=== PATIENT | female | born 1960 | race Two or more races ===

== ENCOUNTER 2024-11-14 09:59 | Emergency (ER) | payer MEDICARE, MEDICAID, SELFPAY ==
[2024-11-14 10:20] VITALS: BP 144/85; PULSE 70; RESP 16; TEMP 37.3; O2SAT 98; BMI 33.0
--- NOTE | 2024-11-14 10:21 | EKG_ITS ---
[facility] Test Date: 2024-11-14 Pat Name: DUTCH MILLS Department: Room: - Gender: Female Concierge: : 1960 Requested By: Sampson Salinas Order Number: [id number] Reading MD: Sampson Salinas Measurements Intervals [place] Rate: 63 P: 50 [place]: 147 QRS: 3 QRSD: 88 T: 47 QT: 394 QTc: 405 Interpretive Statements SINUS RHYTHM No previous ECG available for comparison /store/[email or web address]/[id number]
--- NOTE | 2024-11-14 10:31 | PD.EDADULT ---
ED General RME/HPI General Chief complaint: General Adult/Misc Complain Stated complaint: SENT BY CLINIC FOR DEHYDRATION Time Seen by Provider: 11/14/24 10:22 Source: patient Arrival date/time: 11/14/24 09:59 64-year-old female with no known medical history presents to the emergency room with a chief complaint of fatigue, weakness x 3 days. Patient states she was sent over by her clinic for dehydration. Mode of arrival: ambulatory Limitations: no limitations Related Data Allergies Allergy/AdvReac Type Severity Reaction Status Date / Time codeine Allergy Verified 07/16/10 09:15 Review of Systems Review of Systems Systems Reviewed: All systems reviewed, normal except as documented Constitutional Constitutional: Reports system reviewed and no additional complaints, except as documented, Reports body ache(s), Denies fatigue, Denies fever(s), Reports headache(s) and Reports weakness Eyes Eyes: Reports system reviewed and no additional complaints, except as documented, Denies blurry vision and Denies change in vision ENT Ears, Nose, Mouth, and Throat: Reports system reviewed and no additional complaints, except as documented, Denies otalgia, Reports headache(s), Denies nasal congestion, Denies throat swelling and Denies vertigo Cardiovascular Cardiovascular: Reports system reviewed and no additional complaints, except as documented, Denies chest pain, Denies dyspnea and Denies dyspnea on exertion Respiratory Respiratory: Reports system reviewed and no additional complaints, except as documented, Denies chest congestion, Denies cough, Denies dyspnea, Denies dyspnea on exertion and Denies wheezing Gastrointestinal Gastrointestinal: Reports system reviewed and no additional complaints, except as documented, Denies abdominal pain, Denies cramping, Denies nausea and Denies vomiting Genitourinary Genitourinary: Reports system reviewed and no additional complaints, except as documented Musculoskeletal Musculoskeletal: Reports system reviewed and no additional complaints, except as documented and Denies back pain Integumentary/Breasts Skin/Breast: Reports system reviewed and no additional complaints, except as documented and Denies wounds Neurologic Neurologic: Reports system reviewed and no additional complaints, except as documented, Denies confusion, Reports headache(s), Denies lack of coordination, Denies vertigo and Reports weakness Psychiatric Psychiatric: Reports system reviewed and no additional complaints, except as documented, Denies anxiety, Denies confusion, Denies depression, Denies paranoia, Denies suicidal ideation and Denies tactile hallucinations Endocrine Endocrine: Reports system reviewed and no additional complaints, except as documented and Denies fatigue Hematologic/Lymphatic Hematologic/Lymphatic: Reports system reviewed and no additional complaints, except as documented and Denies lymphadenopathy Allergic/Immunologic Allergic/Immunologic: Reports system reviewed and no additional complaints, except as documented, Denies throat swelling, Denies urticaria and Denies wheezing Past Medical History Social History SMOKING STATUS: Never smoker ED Exam General Limitations: Present no limitations General appearance: Present alert and in no apparent distress Head Head exam: Present atraumatic Eye Eye exam: Present normal appearance, PERRL and EOMI ENT ENT exam: Present normal exam, normal oropharynx and mucous membranes moist Neck Neck exam: Present normal inspection, full ROM and trachea midline Chest Chest inspection: Present normal inspection and symmetric chest wall rise Respiratory Respiratory exam: Present normal lung sounds bilaterally Cardiovascular Cardiovascular exam: Present regular rate, normal rhythm and normal heart sounds; Absent bradycardia, tachycardia or irregular rhythm Abdominal Exam Abdominal exam: Present soft and normal bowel sounds; Absent distention, tenderness, guarding or rebound Extremities Exam Extremities exam: Present normal inspection and full ROM Back Exam Back exam: Present normal inspection and full ROM Neurological Exam Neurological exam: Present alert, oriented X3 and CN II-XII intact Psychiatric Psychiatric exam: Present normal affect and normal mood Skin Skin exam: Present warm, dry, intact and normal color Course Quality Measures none Orders Category Date Time Status EKG (ED ONLY) *Do not use* NOW Care 11/14/24 10:21 Completed EKG (ED Only) Stat Exams 11/14/24 10:21 Draft B-Type Natriuretic Peptide Stat Lab 11/14/24 10:45 Completed CBC Stat Lab 11/14/24 10:45 Completed Comprehensive Metabolic Panel Stat Lab 11/14/24 10:45 Completed Magnesium Stat Lab 11/14/24 10:45 Completed Troponin I Stat Lab 11/14/24 10:45 Completed Urinalysis Stat Lab 11/14/24 10:47 Completed Vital Signs Vital signs: Vital Signs Temperature 99.1 F 11/14/24 10:20 Pulse Rate 70 11/14/24 10:20 Respiratory Rate 16 11/14/24 10:20 Blood Pressure 144/85 H 11/14/24 10:20 Pulse Oximetry (%) 98 11/14/24 10:20 Oxygen Delivery Method Room Air 11/14/24 10:20 O2 saturation 98% within normal limits Procedures -ED EKG Interpretation #1: Date of EK11/14/24 Rate: 63 Interpretation: Reviewed by me EKG Impression: Normal sinus rhythm Discharge Plan Plan Patient Disposition: HOME (Self Care) Discharge Disposition comment: Stable Prescriptions/Referrals Referrals: Gatito Atwood MD [Primary Care Provider] - In 1 week Problem List Clinical Impression: Weakness Patient/Caregiver Discharge Instructions Education Materials: ED Weakness (Uncertain Cause) Additional Instructions: Por favor, consulte con singh m?dico de cabecera en las pr?ximas 24 a 48 horas. Singh examen card?aco se encontr? dentro de los l?mites normales. Heidy niveles de troponina y singh electrocardiograma se encontraron dentro de los l?mites normales. Singh an?lisis de michael fue negativo para cualquier signo pearl de deshidrataci?n. Por favor, contin?e con la hidrataci?n oral y kojo l?quidos jonah Pedialyte o Gatorade. Si observa cualquier signo de empeoramiento de los signos o s?ntomas, acuda a urgencias de inmediato. Print Language: Ukrainian Stand Alone Forms: Taylor Award Info., Patient Portal Info Letter PA/RIVETER HELPER Supervising Physician PA/RIVETER HELPER Supervising Physician: Dr. Lee [facility] Narrative [facility] hospital course: 64-year-old female with no known medical history presents to the emergency room with a chief complaint of fatigue, weakness x 3 days. Patient states she was sent over by her clinic for dehydration. Patient is hemodynamically stable and in no apparent distress. Physical examination shows a soft nontender abdomen. Patient states she is having a lot of fatigue and a lot of weakness for the last 3 days. Patient states she was to get blood drawn at her clinic but they were unable to draw her due to her veins. They recommended her to come to the emergency room to rule out any dehydration. CBC CMP were completed and were negative for any dehydration. EKG and troponin were negative for any acute findings. Patient was discharged and educated to follow-up with primary care provider in the next 24 to 48 hours and return to the emergency room for any evidence of worsening signs or symptoms Clinical Information Provided by patient Medical Records Reviewed [facility] and [facility] Meds/Rx Considered, not Ordered None Labs/Rad/Tests considered, not Ordered None Chronic Illness/Social Conditions which may negatively complicate care or outcome(s)-explain: None or not applicable EKG EKG not done Lab Interpretation Labs: none Imaging Imaging interpretation: none Medication Administration(s) none Diagnosis Differential diagnosis: Weakness/dehydration/electrolyte imbalance/hypokalemia/STEMI Differential dx and/or dx ruled out: Dehydration/hypokalemia/STEMI Most likely dx, and/or detailed dx discussion: Weakness Dispositon Disposition: Discharge Home
[2024-11-14 10:58] LABS: Basophils % (Auto) 0 % (0-2.5); Eosinophils # (Auto) 0.1 Thou/mm3 (0.0-0.5); Eosinophils % (Auto) 1 % (0-10); Hematocrit 41.4 % (36.0-46.0); Hemoglobin 14.3 g/dL (12.0-16.0); Immature Granulocytes % (Auto) 0 % (0-0); Immature Granulocytes Auto 0.01 Thou/mm3 (0.00-0.00); Lymphocytes # (Auto) 1.7 Thou/mm3 (1.0-4.8); Lymphocytes % (Auto) 26 % (10-50); Mean Corpuscular HGB Conc 34.5 g/dl (31.0-37.0); Mean Corpuscular Hemoglobin 30.8 pg (25.0-35.0); Mean Corpuscular Volume 89 fL (80-100); Monocytes # (Auto) 0.4 Thou/mm3 (0.0-0.8); Monocytes % (Auto) 6 % (0-12); Neutrophils # (Auto) 4.2 Thou/mm3 (1.8-7.7); Neutrophils % (Auto) 66 % (37-80); Nucleated Red Blood Cell % 0 /100 WBC (0); Platelet Count 202 Thou/mm3 (140-440); RDW Standard Deviation 43.4 fL (36.4-46.3); Red Blood Count 4.64 Miln/mm3 (4.00-5.20); White Blood Count 6.4 Thou/mm3 (3.6-11.0)
[2024-11-14 10:59] LABS: Collection Type, Urine Clean Catch
[2024-11-14 11:14] LABS: B-Type Natriuretic Peptide < 20 pg/mL (0-100)
[2024-11-14 11:17] LABS: Alanine Aminotransferase 17 U/L (10-49); Albumin, Serum 4.4 gm/dL (3.4-4.8); Albumin/Globulin Ratio 1.7 (1.2-2.2); Alkaline Phosphatase 106 U/L (46-116); Anion Gap 9 (7-16); Aspartate Amino Transferase 20 U/L (0-34); BUN/Creatinine Ratio 15 Ratio (12-20); Bilirubin,Total 2.3 mg/dL (0.3-1.2); Blood Urea Nitrogen 12 mg/dL (9-23); Calcium 9.1 mg/dL (8.3-10.6); Calcium (Corrected) 9.1 mg/dL (8.5-10.1); Carbon Dioxide 27.2 mMol/L (20.0-31.0); Chloride 107 mMol/L (98-107); Creatinine (Component) 0.8 mg/dL (0.6-1.3); Estimated Creatinine Clearance 68.7 mL/min (>60); Globulin 2.6 gm/dL (2.3-3.5); Glucose 95 mg/dL (74-106); Magnesium 2.1 mg/dL (1.6-2.6); Osmolality,Calculated 284 (275-295); Potassium 4.1 mMol/L (3.4-5.1); Sodium 143 mMol/L (136-145); Troponin I < 0.002 ng/mL (0.0-0.045); eGFR > 60 See Note
[2024-11-14 11:39] LABS: Bilirubin,Urine Negative (Negative); Blood,Urine Negative (Negative); Color,Urine Yellow (Lt Yel-Yel); Glucose, Urine Negative (Negative); Ketones,Urine 2+ (Negative); Leukocyte Esterase,Urine Positive (Negative); Nitrite,Urine Negative (Negative); Protein,Urine Trace (Neg - Trace); RBC,Urine 3 /hpf (0-3); Specific Gravity,Urine 1.024 (1.001-1.035); Squamous Epithelial Cell,Urine 2 /hpf (0-5); Urobilinogen,Urine Negative mg/dL (0.0-1.0); WBC,Urine 4 /hpf (0-5)
[2024-11-14 12:06] LABS: Clarity,Urine Hazy (Clear/Hazy)
[2024-11-14 12:57] VITALS: PULSE 77; O2SAT 99
== END 2024-11-14 12:59 | disposition home or self-care (01) ==
PROVIDERS: Nurse Practitioner Family; Emergency Provider Family Medicine; PCP Family Medicine
DX: R53.1 Weakness (principal)
CPT/HCPCS: 36415; 80053; 81001; 83735; 83880; 84484; 85025; 93005; 99283

== ENCOUNTER → 2025-03-31 | Outpatient (CLI) | payer MEDICARE, MEDICAID, SELFPAY ==
--- NOTE | 2025-03-31 13:00 | XR_ITS ---
Examination: Bone densitometry Date and time of exam:March 31 thousand 25 1341 hours INDICATIONS: Menopause age 40 Technique: Lumbar spine and hip total bone mineralization values of an calculated. Peak reference and age match control results have been displayed. Findings: Lumbar spine total bone mineralization is1.032 gm/cm2. This is 1 standard deviations below peak reference. This is 1.8 standard deviations above age-matched controls. Hip total bone mineralization is 1.052 gm/cm2 This is 1.7 standard deviations above peak reference. This is 1.9 standard deviations above age-matched controls Impression: There is normal mineralization based on lumbar spine measurements. There is normal mineralization based on hip measurements
== END | disposition home or self-care (01) ==
LOC: CDIM 13:16
PROVIDERS: PCP Physician Assistant; Referring Provider Physician Assistant; Visit Provider Physician Assistant
DX: M81.0 Age-related osteoporosis without current pathological fracture (principal)
CPT/HCPCS: 77080